=== PATIENT | male | born 1970 | race Caucasian/White ===

== ENCOUNTER 2024-07-18 12:04 | Emergency (ER) | payer MEDICAID ==
[~2024-07-18] VITALS: Ht 165.1 cm; Wt 145.0 kg
[2024-07-18 12:09] VITALS: O2SAT 99
[2024-07-18 12:51] VITALS: BP 135/97; PULSE 98; RESP 18; TEMP 37; O2SAT 99
[2024-07-18 13:12] LABS: BASOPHILS % 0.7 % (0.0-2.0); EOSINOPHILS % 1.7 % (0.0-5.0); HEMATOCRIT. 48.4 % (42.0-52.0); HEMOGLOBIN. 16.4 g/dL (14.0-18.0); LYMPHOCYTES % 19.6 % (20.0-50.0); MEAN CORPUSCULAR HEMOGLOBIN 30.4 pg (28.0-32.0); MEAN CORPUSCULAR HGB CONC 33.9 g/dL (31.0-37.0); MEAN CORPUSCULAR VOLUME 89.7 fL (80.0-94.0); MEAN PLATELET VOLUME 7.8 fl (7.4-10.4); MONOCYTES % 8.6 % (2.0-8.0); NEUTROPHILS % 69.4 % (40.0-76.0); PLATELET 209 x1000/uL (130-400); RED CELL DISTRIBUTION WIDTH 14.4 % (11.6-14.6); WHITE BLOOD COUNT 10.6 x1000/uL (4.5-11.0)
[2024-07-18 13:17] LABS: CHLORIDE 105 mEq/L (98-107); POTASSIUM 3.7 mEq/L (3.5-5.1); SODIUM 139 mEq/L (136-145)
[2024-07-18 13:18] LABS: CALCIUM 8.8 mg/dL (8.7-10.4); CARBON DIOXIDE 29 mEq/L (21-32)
[2024-07-18 13:23] LABS: CREATININE 0.8 mg/dL (0.6-1.3); GLUCOSE 139 mg/dL (70-105)
[2024-07-18 13:24] LABS: TROPONIN I HIGH SENSITIVITY 6 ng/L (3.0-53); UREA NITROGEN BLOOD 13 mg/dL (9-23)
[2024-07-18 13:25] LABS: ALANINE AMINOTRANSFERASE 20 IU/L (10-49); ALBUMIN 3.6 g/dL (3.2-4.8); ASPARTATE AMINOTRANSFERASE 22 IU/L (<34); ETHANOL BLOOD < 10 mg/dL (<10); PROTHROMBIN TIME 10.9 sec (9.6-11.0)
[2024-07-18 13:26] LABS: BILIRUBIN TOTAL 0.3 mg/dL (0.1-1.0); PHOSPHORUS 2.8 mg/dL (2.5-4.9); PROTEIN TOTAL 6.9 g/dL (6.0-8.3)
[2024-07-18 14:32] LABS: BILIRUBIN DIRECT < 0.1 mg/dL (<=3.0)
== END 2024-07-18 14:35 | disposition home or self-care (01) ==
LOC: ER 12:04
DX: R42 Dizziness and giddiness (principal); E11.9 Type 2 diabetes mellitus without complications; I10 Essential (primary) hypertension; Z55.6 Problems related to health literacy
CPT/HCPCS: 36415; 71045; 80048; 80076; 80320; 83735; 83880; 84100; 84484; 85025; 99284; G0480